=== PATIENT | female | born 1965 | race Hispanic/Latino ===

== ENCOUNTER 2022-11-16 22:21 | Inpatient (IN) | payer BC ==
[~2022-11-16] VITALS: Ht 157.5 cm; Wt 79.0 kg
[2022-11-16 23:01] LABS: BASOPHILS # (AUTO) 0.02 K/uL (0.00-0.20); BASOPHILS % (AUTO) 0.2 % (0.0-5.0); EOSINOPHILS # (AUTO) 0.04 K/uL (0.00-0.70); EOSINOPHILS % (AUTO) 0.4 % (0.0-8.0); HEMATOCRIT 30.7 % (36-48); IMMATURE GRANULOCYTE ABSOLUTE 0.04 K/uL (0-1); LYMPHOCYTES # (AUTO) 1.4 K/uL (1.0-4.8); LYMPHOCYTES % (AUTO) 12.5 % (21.0-51.0); MEAN CORPUSCULAR HEMOGLOBIN 29.9 pg (27.0-33.0); MEAN CORPUSCULAR HGB CONC 33.6 g/dL (32.0-36.0); MEAN CORPUSCULAR VOLUME 89.2 fL (79-99); MONOCYTES # (AUTO) 0.7 K/uL (0.1-1.0); MONOCYTES % (AUTO) 6.4 % (3.0-13.0); NEUTROPHILS # (AUTO) 9.1 K/uL (1.8-7.7); NEUTROPHILS % (AUTO) 80.1 % (40.0-77.0); PLATELET COUNT (AUTO) 235 K/uL (130-400); RED BLOOD CELL COUNT(AUTO) 3.44 MIL/uL (4.00-5.50); RED CELL DISTRIBUTION WIDTH 12.7 % (11.0-15.5); WHITE BLOOD COUNT (AUTO) 11.3 K/uL (4.8-10.8)
[2022-11-16 23:57] LABS: ALBUMIN 3.5 g/dL (3.5-5.0); BILIRUBIN,TOTAL 0.2 mg/dL (0.2-1.0); CREATININE 1.4 mg/dL (0.5-1.5); POTASSIUM 4.4 mmol/L (3.5-5.1)
[2022-11-17] MEDS ORDERED: MORPHINE 2 MG SYG ONE ×2 (02:09→10:26)
[2022-11-17] MEDS ORDERED: ORPHENADRINE CITRATE 30 MG/ML ML IVP ONE (02:30)
[2022-11-17] MEDS ORDERED: KETOROLAC 15MG/ML VIAL (15MG/ML) IV ONE (02:30)
[2022-11-17] MEDS ORDERED: MORPHINE 4 MG SYG IVP ONE (02:30)
[2022-11-17] MEDS ORDERED: HYDROMORPHONE 0.5 MG SYG (0.5MG/0.5ML) ONE (03:48)
[2022-11-17] MEDS ORDERED: HYDROMORPHONE 0.5 MG SYG (0.5MG/0.5ML) IM ONE (04:00)
[2022-11-17] MEDS ORDERED: LACTULOSE 20 GM/30 ML UDCUP PO PRN (04:30)
[2022-11-17] MEDS ORDERED: ACETAMINOPHEN 325 MG TAB PO PRN ×2 (04:30)
[2022-11-17] MEDS ORDERED: ONDANSETRON 4MG INJ IV PRN (04:30)
[2022-11-17] MEDS: INSULIN HUMULIN R 100 UNIT/ML 3ML SQ SCH ×3 (04:55→18:00)
[2022-11-17] MEDS: LACTATED RINGERS 1000ML 1,000 ML IV SCH ×2 (04:55→14:36)
[2022-11-17] MEDS: FAMOTIDINE 20MG VIAL IV SCH ×2 (10:32→18:12)
[2022-11-17] MEDS: GABAPENTIN 100 MG CAPSULE PO SCH ×3 (13:03→18:12)
[2022-11-17 13:31] LABS: APPEARANCE,URINE CLEAR (CLEAR); BILIRUBIN,URINE NEGATIVE (NEGATIVE); COLOR,URINE LIGHT-YELLOW (YELLOW); GLUCOSE, URINE (UA) NEGATIVE (NEGATIVE); KETONES,URINE NEGATIVE (NEGATIVE); LEUKOCYTE ESTERASE ,URINE NEGATIVE Leu/uL (NEGATIVE); NITRATE,URINE NEGATIVE (NEGATIVE); OCCULT BLOOD,URINE NEGATIVE (NEGATIVE); PH,URINE 5.5 (5.0-8.0); PROTEIN,URINE NEGATIVE (NEGATIVE); UROBILINOGEN,URINE 0.2 mg/dL (0.2-1.0)
[2022-11-17 13:32] LABS: ADD UA MICROSCOPIC NO
[2022-11-17 13:38] LABS: AMPHET/METH SCREEN,URINE NEGATIVE (NEGATIVE); BARBITURATE SCREEN, URINE NEGATIVE (NEGATIVE); BENZODIAZEPINES SCREEN,URINE NEGATIVE (NEGATIVE); CANNABINOID SCREEN,URINE NEGATIVE (NEGATIVE); COCAINE SCREEN,URINE NEGATIVE (NEGATIVE); OPIATE SCREEN,URINE NEGATIVE (NEGATIVE); PHENCYCLIDINE SCREEN,URINE NEGATIVE (NEGATIVE)
[2022-11-17] MEDS: KETOROLAC 15MG/ML VIAL (15MG/ML) IV PRN (18:11)
[2022-11-17] MEDS ORDERED: LORAZEPAM 2 MG/ML 1 ML VIAL IVP ONE (19:00)
[2022-11-17] MEDS: HYDROMORPHONE 0.5 MG SYG (0.5MG/0.5ML) IVP PRN (19:05)
[2022-11-18] MEDS: LACTATED RINGERS 1000ML 1,000 ML IV SCH (01:02)
[2022-11-18 03:20] VITALS: BP 150/83; PULSE 77; RESP 20; O2SAT 100
[2022-11-18] MEDS: HYDROMORPHONE 0.5 MG SYG (0.5MG/0.5ML) IVP PRN ×2 (03:45→12:14)
[2022-11-18] MEDS: INSULIN HUMULIN R 100 UNIT/ML 3ML SQ SCH ×5 (05:40→21:00)
[2022-11-18 05:46] LABS: BASOPHILS # (AUTO) 0.03 K/uL (0.00-0.20); BASOPHILS % (AUTO) 0.3 % (0.0-5.0); EOSINOPHILS # (AUTO) 0.02 K/uL (0.00-0.70); EOSINOPHILS % (AUTO) 0.2 % (0.0-8.0); HEMATOCRIT 33.5 % (36-48); IMMATURE GRANULOCYTE ABSOLUTE 0.04 K/uL (0-1); LYMPHOCYTES # (AUTO) 1.7 K/uL (1.0-4.8); LYMPHOCYTES % (AUTO) 15.8 % (21.0-51.0); MEAN CORPUSCULAR HEMOGLOBIN 29.6 pg (27.0-33.0); MEAN CORPUSCULAR HGB CONC 33.1 g/dL (32.0-36.0); MEAN CORPUSCULAR VOLUME 89.3 fL (79-99); MONOCYTES # (AUTO) 0.6 K/uL (0.1-1.0); MONOCYTES % (AUTO) 5.8 % (3.0-13.0); NEUTROPHILS # (AUTO) 8.5 K/uL (1.8-7.7); NEUTROPHILS % (AUTO) 77.5 % (40.0-77.0); PLATELET COUNT (AUTO) 222 K/uL (130-400); RED BLOOD CELL COUNT(AUTO) 3.75 MIL/uL (4.00-5.50); RED CELL DISTRIBUTION WIDTH 12.4 % (11.0-15.5)
[2022-11-18 06:10] LABS: CREATININE 0.9 mg/dL (0.5-1.5)
[2022-11-18 08:00] VITALS: BP 146/74; PULSE 75; RESP 20
[2022-11-18 08:30] VITALS: O2SAT 100
[2022-11-18] MEDS: FAMOTIDINE 20MG VIAL IV SCH ×2 (08:57→20:41)
[2022-11-18] MEDS: GABAPENTIN 100 MG CAPSULE PO SCH ×3 (08:57→20:42)
[2022-11-18] MEDS: KETOROLAC 15MG/ML VIAL (15MG/ML) IV PRN ×2 (08:58→20:41)
[2022-11-18] MEDS ORDERED: LIDOCAINE 5% TOPICAL PATCH TP ONE (10:00)
[2022-11-18] MEDS ORDERED: SOLU-MEDROL 125MG VIAL IVP ONE (10:00)
[2022-11-18] MEDS ORDERED: CYCLOBENZAPRINE HCL 10 MG TABLET PO ONE (10:00)
[2022-11-18 10:31] LABS: HEMOGLOBIN A1C 7.1 % (4.0-6.0)
[2022-11-18 12:00] VITALS: BP 130/63; PULSE 64; RESP 20
[2022-11-18 16:00] VITALS: BP 130/64; PULSE 70; RESP 20
[2022-11-18 20:00] VITALS: BP 145/81; PULSE 74; RESP 18; O2SAT 98
[2022-11-19] VITALS: BP 123/65; PULSE 72; RESP 18
[2022-11-19 04:00] VITALS: BP 119/65; PULSE 59; RESP 18
[2022-11-19] MEDS: INSULIN HUMULIN R 100 UNIT/ML 3ML SQ SCH ×3 (06:36→17:11)
[2022-11-19] MEDS: HYDROMORPHONE 0.5 MG SYG (0.5MG/0.5ML) IVP PRN ×3 (06:37→20:39)
[2022-11-19 08:00] VITALS: BP 131/75; PULSE 65; RESP 17; O2SAT 100
[2022-11-19] MEDS: GABAPENTIN 100 MG CAPSULE PO SCH ×2 (09:45→15:39)
[2022-11-19] MEDS: FAMOTIDINE 20MG VIAL IV SCH (09:45)
[2022-11-19] MEDS ORDERED: PREDNISONE 20 MG TABLET PO ONE (10:30)
[2022-11-19] MEDS ORDERED: CYCLOBENZAPRINE HCL 10 MG TABLET PO ONE (10:30)
[2022-11-19 12:00] VITALS: BP 130/69; PULSE 66; RESP 18
[2022-11-19 16:00] VITALS: BP 127/56; PULSE 67; RESP 18
[2022-11-19] MEDS ORDERED: CYCLOBENZAPRINE HCL 10 MG TABLET PO SCH (21:00)
[2022-11-20] MEDS ORDERED: PREDNISONE 20 MG TABLET PO SCH (09:00)
== END 2022-11-19 21:00 | disposition short-term general hospital (02) | DRG 552 ==
LOC: EDH 22:21 → EDHIP 11-17 04:19 → 3BH 11-18 02:52
PROVIDERS: ADMIT Hospitalist; ATTEND Hospitalist
DX: M47.816 Spondylosis without myelopathy or radiculopathy, lumbar region (principal); N17.9 Acute kidney failure, unspecified; R55 Syncope and collapse; E11.9 Type 2 diabetes mellitus without complications; E66.09 Other obesity due to excess calories; W01.0XXA Fall on same level from slipping, tripping and stumbling without subsequent striking against object, initial encounter; Z68.31 Body mass index [BMI] 31.0-31.9, adult; Y93.89 Activity, other specified; Z90.710 Acquired absence of both cervix and uterus; Y92.89 Other specified places as the place of occurrence of the external cause; Y99.8 Other external cause status
CPT/HCPCS: 36415; 70450; 72125; 72131; 72148; 72192; 72195; 80048; 80053; 80305; 81003; 82550; 82948; 83036; 84484; 85025; 85651; 86140; 93005; 97039; G0378; J1170; J1815; J1885; J2060; J2270; J2930; J3490; A4600; J2360